=== PATIENT | male | born 1990 | race Two or more races ===

== ENCOUNTER 2024-02-06 13:15 | Emergency (ER) | payer OTHER, SELFPAY ==
[2024-02-06 13:18] VITALS: BP 165/96
[2024-02-06 14:52] VITALS: BP 132/80
--- NOTE | 2024-02-06 15:15 | ED.GENMED ---
History of Present Illness
General
Chief Complaint: Chest Pain
Source: patient
Exam Limitations: none
Time Seen by Provider: 02/06/24 15:07
Nursing documentation reviewed up to this point in time: agreed with
Travel History
Have you had any contact with someone who has COVID-19?: No
Do you have any symptoms of coronavirus? Fever > 100 degrees, chills, cough, shortness of breath, sore throat, loss of taste or smell, muscle aches, or headache?: No
History of Present Illness
History of Present Illness:
Patient is a 31 yr old male who presents to the ER for evaluation of left-sided chest pain that he has had for the past 3 weeks. He reports it has been constant for the past 2 weeks. He denies any associated shortness of breath. Denies any
injury but does tell me he feels that his pain is slightly improved when he lifts his left arm back. He has not taken anything for his pain he denies any rash fever or chills. He denies any coughing. He denies any prior history of cardiac
disease. No prior history of DVT PE. No family history cardiac disease.
Family history of hypertension. Patient is a smoker.
He presented to the ER today because he was afraid and wanted to be evaluated.
Review of Systems
Review of Systems
Allergies reviewed?: Yes
All Other Systems: ROS reviewed and negative except as documented in HPI and ROS
Constitutional: Reports no symptoms
Respiratory: Reports no symptoms
Cardiac: Reports chest pain; Denies diaphoresis, palpitations or syncope
ABD/GI: Reports no symptoms
: Reports no symptoms
Musculoskeletal: Reports no symptoms
Skin: Reports no symptoms
Neurological: Reports no symptoms
Hematologic/Lymphatic: Reports no symptoms
Psychiatric: Reports no symptoms
Phy Exam
General Physical Exam
General Presentation: no apparent distress
General age: appears stated age
General Skin: warm and dry
General Habitus: normal
General Mental: alert
General Hydration: appears well hydrated
Cardiovascular Exam
Cardiovascular Exam: regular rate/rhythm, no murmur and normal peripheral pulses
Pulmonary Exam
Pulmonary Exam: lungs clear and no respiratory distress
Neurological Exam
Neurological Exam: alert and oriented x3
Musculoskeletal Exam
Musculoskeletal Exam: full ROM
Skin Exam
Skin Exam: normal color and warm/dry
Psychiatric Exam
Psychiatric Exam: normal mood/affect
Scores
Heart Score for Chest Pain Patients
STEMI patient?: Not applicable
Course
Orders/Labs/Results
Orders:
Orders
02/06/24 13:16
EKG [Electrocardiogram (*1)] Urgent
Reason for Study: Chest Pain
EKG- Treatment ONCE
02/06/24 15:13
IV Insert/Care/Rem.- Treatment PRN
02/06/24 15:14
Cardiac Monitoring- Treatment ONCE
CR Chest - 2 Views Urgent
Comment:
Reason For Exam: cp
02/06/24 15:28
Complete Blood Count/With Diff Urgent
Comprehensive Metabolic Panel Urgent
Troponin I Urgent
02/06/24 15:53
D-Dimer Urgent
02/06/24 16:34
Ketorolac [Toradol] 15 mg IV NOW STA
Abnormal Lab Results
02/06/24
15:28
Absolute Monos (auto) 0.7 H 10^3/uL
(0.1-0.6)
Monocytes % 9.4 H %
(1.7-9.3)
Creatinine 0.6 L mg/dL
(0.7-1.3)
02/06/24 15:28
02/06/24 15:28
Vital Signs
Initial and Last Documented VS:
Initial Vital Signs
Temp Pulse Resp BP Pulse Ox
97.6 F 94 17 165/96 99
02/06/24 13:18 02/06/24 13:18 02/06/24 13:18 02/06/24 13:18 02/06/24 13:18
Last Documented Vital Signs
Temp Pulse Resp BP Pulse Ox
97.6 F 74 23 129/84 96
02/06/24 13:18 02/06/24 16:45 02/06/24 16:45 02/06/24 16:00 02/06/24 16:30
MDM/Problems Addressed
Differential Diagnosis Includes:
Not limited to musculoskeletal pain, costochondritis less likely ACS less likely PE
MDM/Problems Addressed:
Patient no acute distress has had constant pain for the past several weeks to left upper chest he does feel some relief when moving his arm back and outstretched. Symptoms are likely muscular. Patient no acute distress nontachycardic not shortness
of breath lungs clear not hypoxic with a normal D-dimer normal cardiac troponin and normal EKG. No recent fever chills he is afebrile here with a normal white count stable hemoglobin and normal chemistries. Will give dose of Toradol and plan for
discharge home with anti-inflammatory and close outpatient follow-up by family doctor.
*Radiology
Radiology exam reviewed: radiology read reviewed
*Pulse Oximetry
Patient hypoxic: no
*EKG
Interpreted by ED Provider?: Yes
Interpretation: normal
Heart Rate: 89
Rate: normal
Rhythm: sinus
Ischemia: no ischemia
*Critical Care Note
Total Time (30-74mins, 75-104mins- exclusive of procedures): Not Applicable
ED Attending Note
-
Portions of this chart may have been created with voice recognition software.� Occasional wrong word or��sound alike� substitutions may have occurred due to the inherent limitations of voice recognition software.
Discharge Plan
Departure
Patient Disposition: Home (Routine Discharge)
Date of Disposition: 02/06/24
Time of Disposition: 17:01
Patient with high blood pressure during this ER visit?: Yes
Condition: Fair
Covid-19: Not Applicable
Discharge Problem:
Chest pain
Instructions: Chest Pain That Is Not Caused by the Heart (DC), Chest Pain PCP Follow Up
Referrals:
Juany Salazar MD [Family Provider] -
Activity Restrictions/Additional Instructions:
As discussed your workup here in the ER was unremarkable. You may take ibuprofen 600 mg every 8 hours with food for pain. Follow-up close with family doctor the next several days return if any worsening of symptoms
Interventions
Interventions:
*Risk Screen - Suicide Last Done: 02/06/24 14:53
*General Assessment Last Done: 02/06/24 14:53
*Neglect/Abuse Screening Last Done: 02/06/24 14:53
*ED COVID-19 Vaccine History Last Done: 02/06/24 14:53
ED- Cardiac Assessment Last Done: 02/06/24 14:53
[2024-02-06 15:27] VITALS: BP 127/73
[2024-02-06 15:34] LABS: % Basophils 0.3 % (0-2); % Eosinophils 1.2 % (0-6); % Immature Granulocytes 0.3 % (0-0.5); % Lymphocytes 33.6 % (20.5-51.1); % Monocytes 9.4 % (1.7-9.3); % Neutrophils 55.2 % (42.2-75.2); Absolute Eosinophils 0.1 10^3/uL (0-0.7); Absolute Lymphocytes 2.3 10^3/uL (1.2-3.4); Absolute Monocytes 0.7 10^3/uL (0.1-0.6); Absolute Neutrophils 3.8 10^3/uL (1.4-6.5); Hematocrit 42.8 % (39.0-52.0); Hemoglobin 14.9 g/dL (13.0-18.0); Mean Corp Hgb Conc. 34.8 g/dL (33.0-37.0); Mean Corpuscular Hgb 29.4 pg (27.0-31.0); Mean Corpuscular Volume 84.4 fL (80.0-94.0); Mean Platelet Volume 9.4 fL (7.4-10.4); Nucleated Red Blood Cells % 0 % (-); Platelet Count 237 10^3/uL (130-400); Red Blood Cell Count 5.07 10^6/uL (4.70-6.10); Red Cell Dist. Width 12.3 % (11.5-14.5); White Blood Cell Count 6.9 10^3/uL (4.8-10.8)
[2024-02-06 15:53] VITALS: BP 124/80
[2024-02-06 16:00] VITALS: BP 129/84
[2024-02-06 16:02] LABS: Troponin I < 0.012 ng/ml
[2024-02-06 16:05] LABS: ALT (SGPT) 43 U/L (0-50); AST (SGOT) 33 U/L (17-59); Albumin 4.5 g/dl (3.5-5.0); Alkaline Phosphatase 94 U/L (38-126); Blood Urea Nitrogen 15 mg/dl (9-20); Calcium 10.1 mg/dl (8.4-10.2); Carbon Dioxide 22 mmol/L (22-30); Chloride 105 mmol/L (98-107); Glucose 97 mg/dl (70-99); Potassium 4.3 mmol/L (3.5-5.1); Sodium 138 mmol/L (135-145); Total Bilirubin 0.7 mg/dl (0.2-1.3); Total Protein 7.7 g/dl (6.3-8.2); eGFR > 60.00
[2024-02-06 16:13] LABS: D-Dimer < 0.27 ug/mlFEU (0.00-0.50)
[2024-02-06] MEDS: TORADOL 15 MG IV (16:46)
== END 2024-02-06 17:30 | disposition home or self-care (01) ==
LOC: EMR 13:15
PROVIDERS: Nurse Practitioner; EMERGENCY PHYSICIAN Emergency Medicine; FAMILY PHYSICIAN Family Medicine
DX: R07.89 Other chest pain (principal); R03.0 Elevated blood-pressure reading, without diagnosis of hypertension; F17.200 Nicotine dependence, unspecified, uncomplicated
CPT/HCPCS: 99284; 96374; 71046; 80053; 84484; 85025; 85379; 93005

== ENCOUNTER 2025-05-16 20:40 | Emergency (ER) | payer OTHER, SELFPAY ==
[2025-05-16 20:44] VITALS: BP 151/102
--- NOTE | 2025-05-16 22:16 | ED.GENMED ---
History of Present Illness
General
Chief Complaint: Skin Problem
Source: patient
Exam Limitations: none
Time Seen by Provider: 05/16/25 21:46
Nursing documentation reviewed up to this point in time: agreed with
History of Present Illness
History of Present Illness:
34-year-old male with no reported chronic medical issues presents with rash. Patient reports intensely pruritic rash on the arms bilaterally as well as the left chest wall. He says that the rash started last week and he has noticed a few new
lesions develop since then. Initially started mainly on the left forearm/wrist and then progressed to the right arm and ultimately the chest. Denies any lesions in the mouth, redness in the eyes. No fever. He says that prior to onset he was
doing yard work pulling weeds.
Review of Systems
Review of Systems
All Other Systems: ROS reviewed and negative except as documented in HPI and ROS
Constitutional: Denies fever
Skin: Reports itching and rash
Phy Exam
Physical Exam
Physical Exam:
General: Well appearing and non-toxic
HEENT: protecting airway
Neck: appears supple
CV: No evidence of cyanosis
Resp: No accessory muscle use
Abd: Non-distended
Extremities: No deformities
Neuro: Alert
Psych: Normal affect
Skin: Patient has raised erythematous vesicular rash ventral aspect of the left forearm as well as the right upper arm medial aspect and left pectoral region�lesions are roughly linear with some excoriations, no confluent erythema
Scores
Heart Failure Risk
Heart Failure Risk Score: Not Applicable
Heart Score for Chest Pain Patients
STEMI patient?: Not applicable
Withdrawal Assessment of Alcohol
Withdrawal Assessment Completed?: Not applicable
Course
Orders/Labs/Results
Orders:
Orders
05/16/25 22:15
Calamine [Calamine Lotion] See Dose Instructions TOPICAL ONCE ONE
Prednisone [Deltasone] 50 mg PO NOW STA
Vital Signs
Initial and Last Documented VS:
Initial Vital Signs
Temp Pulse Resp BP Pulse Ox
36.8 C 63 18 151/102 100
05/16/25 20:44 05/16/25 20:44 05/16/25 20:44 05/16/25 20:44 05/16/25 20:44
Last Documented Vital Signs
Temp Pulse Resp BP Pulse Ox
36.8 C 63 18 151/102 100
05/16/25 20:44 05/16/25 20:44 05/16/25 20:44 05/16/25 20:44 05/16/25 20:44
MDM/Problems Addressed
Differential Diagnosis Includes:
Poison peggy dermatitis, scabies, eczema
MDM/Problems Addressed:
34-year-old male presents with pruritic rash as described on the arms and chest wall started a week ago after pulling weeds in the yard. Vitals and exam as above�no mucous membrane involvement, no fever. Presentation seems most consistent with
poison peggy dermatitis. Treat with calamine and prednisone. Stable for discharge. Advised to clean close and shoes. He was noted to be hypertensive here we spoke about this�we talked about dietary adjustments and exercise, follow-up with PCP.
All questions answered.
Acute Exacerbation and/or Progression of Chronic Illness:
Acutely hypertensive without signs or symptoms of hypertensive crisis�no indication for emergent antihypertensive treatment
Acute Exacerbation and/or Progression of Chronic Illness: HTN
*Pulse Oximetry
Patient hypoxic: no
*Critical Care Note
Total Time (30-74mins, 75-104mins- exclusive of procedures): Not Applicable
Data Reviewed
Source: patient
ED Attending Note
-
Portions of this chart may have been created with voice recognition software.� Occasional wrong word or��sound alike� substitutions may have occurred due to the inherent limitations of voice recognition software.
Discharge Plan
Departure
Patient Disposition: Home (Routine Discharge)
Date of Disposition: 05/16/25
Time of Disposition: 22:13
Patient with high blood pressure during this ER visit?: Yes
Discharge Problem:
Poison peggy dermatitis
Instructions: Poison [place], Poison [place], Poison [place] [facility]
Prescriptions:
New
Calagesic 1-8 % lotion
1 applic topical QID PRN (Reason: itching) Qty: 177 0RF
prednisone 10 mg Tablet
See Rx Instructions .ROUTE .COMPLEX Qty: 30 0RF
Rx Instructions:
Take By Mouth:
40 mg daily x3 days, 30 mg daily x3 days,
20 mg daily x3 days, 10 mg daily x3 days.
Referrals:
NONE,* [Family Provider, Internal Medicine]
Activity Restrictions/Additional Instructions:
Make sure you clean your clothes and shoes as we discussed. Please return with worsening symptoms.
Thank you for visiting the Emergency Department at [facility].
1. Please schedule a follow up appointment as directed. Call first thing tomorrow morning to make an appointment.
2. If indicated, please take your medications as instructed and indicated on discharge paperwork.
3. If any of your symptoms do not improve, or persist, or become more severe within 6-12 hours, please return to the emergency department for further care.
4. Please return to the emergency department if you develop a headache, neck pain/stiffness, fever greater than 100.4F, chest pain, shortness of breath, persistent nausea, vomiting, slurred speech, difficulty walking, numbness/tingling, weakness,
signs of infection or any other symptoms that are worrisome to you.
Please call [phone] if you have any questions.
Interventions
Interventions:
*Risk Screen - Suicide Last Done: 05/16/25 20:45
*General Assessment Last Done: 05/16/25 20:45
*Neglect/Abuse Screening Last Done: 05/16/25 20:45
*ED- Fall Risk Assessment Last Done: 05/16/25 20:45
*ED COVID-19 Vaccine History Last Done: 05/16/25 20:45
Discharge Date and Time
Print Language: VIETNAMESE
[2025-05-16] MEDS: DELTASONE 50 MG PO (22:31)
[2025-05-16] MEDS: CALAMINE LOTION 180 ML TOPICAL (22:32)
[2025-05-16 22:35] VITALS: BP 131/83
== END 2025-05-16 22:39 | disposition home or self-care (01) ==
LOC: EMR 20:40
PROVIDERS: EMERGENCY PHYSICIAN Emergency Medicine
DX: L23.7 Allergic contact dermatitis due to plants, except food (principal); I10 Essential (primary) hypertension
CPT/HCPCS: 99283

== ENCOUNTER 2025-08-28 12:38 | Emergency (ER) | payer OTHER, SELFPAY ==
[2025-08-28 12:39] VITALS: BP 145/97
--- NOTE | 2025-08-28 14:07 | ED.GENMED ---
History of Present Illness
General
Chief Complaint: Ear Problem
Source: patient and spouse
Time Seen by Provider: 08/28/25 13:59
History of Present Illness
History of Present Illness:
35 yr old male with c/o R ear pain for 3 weeks. No trauma/f/c/vertigodizziness/uri sxs. No swelling, dischxrage, st/rhinorrhea/cough. No neck pain. No cp/sob. Pt does note that he will sometimes have tinglign of raquel mb/index and middle finger as
well. checks his bp reguarly and notes it is sbp 140's, and noted to 160's most recently. He rarely sees a doctor.
Past History
Past History
ED Past Medical History: None
ED Past Surgical History: None
Social History
Tobacco: Smoker
Alcohol: Occasional
Drug: None
Personal:
Living: with family
Phy Exam
Physical Exam
Physical Exam:
GENERAL: Alert , in no apparent distress
EYE: pupils equal and reactive, EOMI, no nystagmus, no
NECK: Supple, no significant adenopathy.
ENT: o/p clr, mmm, airway patent, no trismus, no drool, TMs clear bilaterally, no auricle abnormalities, no mastoid tenderness swelling or redness.
CARDIAC: Regular rate and rhythm .
LUNGS: Clear breath sounds bilaterally, no acute respiratory distress, no wheezes/rales/rhonchi
ABDOMEN: Soft, without focal tenderness, no r/g, no cvat
NEUROLOGICAL: Alert and oriented, no focal neuro deficits, motor 5 out of 5, sensory intact, [id number] normal, gait normal
SKIN: Warm and dry, skin intact.
MUSCULOSKELETAL: No edema, well perfused.
PSYCH: Normal and appropriate interaction.
Course
Vital Signs
Initial and Last Documented VS:
Initial Vital Signs
Temp Pulse Resp BP Pulse Ox
98.1 F 70 18 145/97 98
09/29/25 12:39 08/28/25 12:39 08/28/25 12:39 08/28/25 12:39 08/28/25 12:39
Last Documented Vital Signs
Temp Pulse Resp BP Pulse Ox
98.1 F 70 18 145/97 98
08/28/25 12:39 08/28/25 12:39 08/28/25 12:39 08/28/25 12:39 08/28/25 14:10
*Pulse Oximetry
SaO2: 98
Oxygen Mode of Delivery: Room air
Patient hypoxic: no
*Critical Care Note
Total Time (30-74mins, 75-104mins- exclusive of procedures): Not Applicable
Update Note
Update Note:
Patient presents to the Emergency Department with __ear pain with intermittent tingling fingers
Number and Complexity of Problems Addressed at the Encounter
� Chronic conditions affecting care:
� Acute Exacerbation and/or Progression of Chronic Illness:
� Differential Diagnosis includes: But not limited to otitis media, otitis externa, hemotympanum, trauma, mastoiditis, atypical headache, dental referred pain, radiculopathy, etc. etc.
Amount and/or Complexity of Data to be Reviewed and Analyzed
� I performed an independent evaluation of and my interpretation is:
EKG:
CT:
Xrays:
Laboratory Studies:
Other:
� Review of other/old records reveals:
� Clinical information was obtained by an independent historian: who is bedside
� Prescriptions/Medications Considered but not given:
� Further testing considered but not performed:
Risk of Complications and/or Morbidity or Mortality of Patient Management
� Social determinants of health affecting care:
� Discussion with other providers (PCP, Hospitalists, Consultants, etc):
� Escalation of care including admission/observation vs risk of discharge considered: Patient's exam is completely normal including thorough neurological exam, ENT exam, etc. Suspect tingling that he is having likely a
radiculopathy perhaps related to radial nerve impingement/spinal stenosis. Patient's blood pressure noted to be elevated here, highly recommend patient see his primary care doctor this week for management and further evaluation of this. Patient
does not demonstrate signs or symptoms to suggest endorgan injury, TIA/CVA, dissection, etc. etc. Of note, he does state that his symptoms are relieved with Tylenol.
ED Attending Note
-
Portions of this chart may have been created with voice recognition software.� Occasional wrong word or��sound alike� substitutions may have occurred due to the inherent limitations of voice recognition software.
Discharge Plan
Departure
Patient Disposition: Home (Routine Discharge)
Date of Disposition: 08/28/25
Time of Disposition: 14:07
Patient with high blood pressure during this ER visit?: Yes
Condition: Good
Discharge Problem:
Hypertension
Instructions: BLOOD PRESSURE
Prescriptions:
No Action
Calagesic 1-8 % lotion
1 applic topical QID PRN (Reason: itching) Qty: 177 0RF
prednisone 10 mg Tablet
See Rx Instructions .ROUTE .COMPLEX Qty: 30 0RF
Rx Instructions:
Take By Mouth:
40 mg daily x3 days, 30 mg daily x3 days,
20 mg daily x3 days, 10 mg daily x3 days.
Referrals:
Glenn Rdz MD [Family Provider, Internal Medicine] - Tomorrow
Activity Restrictions/Additional Instructions:
YOUR EAR EXAM IS NORMAL, HOWEVER YOUR BLOOD PRESSURE IS ELEVATED. PLEASE SEE YOUR DOCTOR SOON POSSIBLE FOR EVALUATION OF THIS. IF YOU DEVELOP FEVER, DIZZINESS, WEAKNESS, CHANGE IN VISION/SPEECH, SWELLING, INCREASING/NEW PAIN, OR OTHER
WORRISOME SIGNS, GO TO THE ER IMMEDIATELY!
Interventions
Interventions:
*Risk Screen - Suicide Last Done: 08/28/25 12:39
*General Assessment Last Done: 08/28/25 12:39
*Nursing Disposition Last Done: 08/28/25 14:12
Discharge Date and Time
Print Language: GERMAN
== END 2025-08-28 14:14 | disposition home or self-care (01) ==
LOC: EMR 12:38
PROVIDERS: EMERGENCY PHYSICIAN Emergency Medicine; FAMILY PHYSICIAN Internal Medicine
DX: I10 Essential (primary) hypertension (principal); F17.200 Nicotine dependence, unspecified, uncomplicated
CPT/HCPCS: 99282

== ENCOUNTER 2025-10-13 20:43 | Emergency (ER) | payer OTHER, SELFPAY ==
[2025-10-13 20:50] VITALS: BP 160/100
[2025-10-13 21:12] LABS: Urine Character Clear (Clear)
[2025-10-13 21:16] LABS: Hematocrit 45.0 % (39.0-52.0); Hemoglobin 15.0 g/dL (13.0-18.0); Mean Corp Hgb Conc. 33.3 g/dL (33.0-37.0); Mean Corpuscular Volume 87.2 fL (80.0-94.0); Nucleated Red Blood Cells % 0 % (-); Platelet Count 229 10^3/uL (130-400); Red Cell Dist. Width 11.6 % (11.5-14.5)
[2025-10-13 21:35] LABS: Urine Squamous Cell 0-2 /LPF (Few)
[2025-10-13 21:36] LABS: Urine Red Blood Cell 0-2 /HPF (0-2); Urine White Cell 0-2 /HPF (0-5)
[2025-10-13 21:37] LABS: ALT (SGPT) 56 U/L (0-50); AST (SGOT) 32 U/L (17-59); Albumin 5.0 g/dl (3.5-5.0); Alkaline Phosphatase 98 U/L (38-126); Blood Urea Nitrogen 12 mg/dl (9-20); Calcium 9.9 mg/dl (8.4-10.2); Carbon Dioxide 28 mmol/L (22-30); Chloride 105 mmol/L (98-107); Glucose 92 mg/dl (70-99); Potassium 3.8 mmol/L (3.5-5.1); Sodium 138 mmol/L (135-145); Total Protein 8.3 g/dl (6.3-8.2); eGFR > 60.00
[2025-10-13 21:49] LABS: Troponin I 0.016 ng/ml
--- NOTE | 2025-10-13 22:21 | ED.GENMED ---
History of Present Illness
General
Chief Complaint: Chest Pain
Source: patient
Exam Limitations: none
Time Seen by Provider: 10/13/25 22:12
History of Present Illness
History of Present Illness:
See MDM
Past History
Past History
ED Past Medical History: HTN
ED Past Surgical History: None
Social History
Tobacco: Smoker
Alcohol: Occasional
Drug: None
Personal:
Living: with family
Phy Exam
Physical Exam
Physical Exam:
See MDM
Scores
Heart Score for Chest Pain Patients
STEMI patient?: No
History: Slightly or Non-Suspicious
ECG: Normal
Age: </= 45 years
Risk Factors: 1 or 2 Risk Factors
Troponin: </= Normal Limit
Heart Score for Chest Pain Patients: 1
Heart Score Risk: 2.5% MACE over next 6 weeks
Course
Orders/Labs/Results
Orders:
Orders
10/13/25 20:55
Electrocardiogram (*1) Urgent
Reason for Study: Other
Other Reason for Exam: Respiratory Distress
EKG- Treatment ONCE
CR Chest - 2 Views Urgent
Comment:
Reason For Exam: respiratory distress
O2 Therapy [RESP] Urgent
Titrate/Wean O2 to maintain O2 sat greater than (%): 93
Special Instructions: TO MAINTAIN CONTINUOUS O2 SATS >/= 93%
Pulse Ox/cont/shift [RESP] Urgent
Quantity: 1
Special Instructions: continuous pulse ox
10/13/25 21:05
Complete Blood Count/With Diff Urgent
Urinalysis Reflex To Culture Urgent
Date Specimen was Collected: 10/13/25
Time Specimen was Collected: 20:56
Urine Microscopic Reflex Cult Urgent
10/13/25 21:06
Comprehensive Metabolic Panel Urgent
NT-proBNP Urgent
Troponin I Urgent
10/13/25 22:18
CT Abd/pel Without Iv Or Oral Urgent
Comment:
Reason For Exam: flank pain
10/13/25 22:45
Hydrochlorothiazide [Oretic] 12.5 mg PO NOW ONE
Abnormal Lab Results
10/13/25 10/13/25
21:05 21:06
ALT 56 H U/L
(0-50)
Total Protein 8.3 H g/dl
(6.3-8.2)
Urine Bacteria (Reflex) Few A
(Negative)
Urine Albumin (Reflex) 1+ A
(Neg - Trace)
10/13/25 21:05
10/13/25 21:06
Vital Signs
Initial and Last Documented VS:
Initial Vital Signs
Temp Pulse Resp BP Pulse Ox
97.8 F 74 20 160/100 99
10/13/25 20:50 10/13/25 20:50 10/13/25 20:50 10/13/25 20:50 10/13/25 20:50
Last Documented Vital Signs
Temp Pulse Resp BP Pulse Ox
97.8 F 58 18 135/95 95
10/13/25 20:50 10/13/25 23:26 10/13/25 23:26 10/13/25 23:00 10/13/25 23:30
MDM/Problems Addressed
Differential Diagnosis Includes:
Note:
CHIEF COMPLAINT(S)
High blood pressure and back pain.
HISTORY OF PRESENT ILLNESS
The patient is a 35-year-old male with a history of hypertension. He was recently started on losartan 50 mg once daily. He reports taking two doses per day, yesterday and today, due to elevated blood pressure readings at home ranging from 165/70 to
178/70 mmHg. The patient mentions experiencing flank pain, which appears to reflect as back pain rather than kidney issues. He denies any urinary symptoms and reports recent normal lab work and an EKG, which was evaluated as fine. Patient denies
any exertional symptoms. Complains of some chest pressure that has been ongoing for the past day or so.
PAST MEDICAL AND SURGICAL HISTORY
The patient has a history of hypertension treated with losartan.
CHRONIC MEDICAL CONDITIONS SIGNIFICANTLY AFFECTING CARE
Chronic conditions affecting care: Hypertension.
SOCIAL DETERMINANTS OF HEALTH
The patient mentions a family history of hypertension ('Everyone does').
PHYSICAL EXAM
General: Alert, no acute distress.
Skin: Warm, dry.
Head: Normocephalic, atraumatic
Neck: Appears supple, trachea midline.
Eyes, Ears, Nose, Mouth, and Throat: Moist mucous membranes
Cardiovascular: No signs of cyanosis. Regular rate and rhythm
Respiratory: Respirations are non-labored. Lungs clear
Abdomen: Non-distended
Back: Mild paralumbar muscle tenderness.
Musculoskeletal: No deformities
Neurological: No focal neurological deficit observed.
Psychiatric: Cooperative, appropriate mood and affect.
PLAN
Order a CT scan to rule out kidney stones and evaluate the possibility of increasing losartan dosage or adding an additional antihypertensive agent until further assessment with the primary care physician.
Will add dose of hydrochlorothiazide in addition to his losartan
DIFFERENTIAL DIAGNOSIS
The Differential Diagnosis includes, in no particular order and is not limited to:
- Hypertension
- Kidney stone
- Musculoskeletal back pain
- Renal artery stenosis
- Pyelonephritis
- Pheochromocytoma
- Primary aldosteronism
- Cushings syndrome
- Coarctation of the aorta
- Anxiety-related hypertension
SUMMARY OF ENCOUNTER
The patient presented with elevated blood pressure and associated flank pain. Normal clinical workup, including EKG and lab results, suggests benign findings thus far. Management plans include re-evaluating hypertension medication and performing a
CT scan to rule out possible kidney stones.
DISPOSITION
Discharge.
ASSESSMENT
Hypertension with possible musculoskeletal component for back pain.
INDEPENDENT REVIEW OF LABS AND INTERPRETATION OF TESTS
My independent review of the patients prior lab work indicates normal results without signs of organ injury.
MEDICATION RECONCILIATION
Possibility to increase losartan dosage temporarily or add another antihypertensive medication as discussed.
MEDICAL DECISION MAKING
- Complexity of Data Reviewed: Chronic conditions affecting care: Hypertension.
- Data:
Category 1:
- Review and interpretation of EKG: Normal
- Blood test analysis: Unremarkable
- Independent historian input: Family history of hypertension.
Category 2:
- Discussion of management with the patient about increasing or adjusting hypertension medications.
DIAGNOSIS
Hypertension (ICD-10: I10)
EKG
My independent EKG interpretation is:
- Rhythm: Sinus rhythm
- Heart Rate: 64 beats per minute
- Beach: Normal
- ST Segment: No ST elevation
SUMMARY OF ENCOUNTER
The patient presented with complaints of chest pressure and back pain accompanied by elevated blood pressure. A comprehensive evaluation was conducted with no evidence found of end-organ damage. The chest X-ray was clear, and a CT scan ruled out
kidney stones. Discussion involved increasing his current antihypertensive medication, losartan, given suboptimal blood pressure control.
DISPOSITION
Discharge.
ASSESSMENT
Elevated blood pressure without acute end-organ damage.
PLAN
Increase losartan dosage by adding hydrochlorothiazide on an as-needed basis until further evaluation with the primary care physician can establish a more effective blood pressure management regimen.
INDEPENDENT REVIEW OF LABS AND INTERPRETATION OF TESTS
- My independent review verifies a clear chest X-ray.
- My independent interpretation of the CT scan confirms the absence of kidney stones.
MEDICATION RECONCILIATION
- Initiation of hydrochlorothiazide on an as-needed basis for blood pressure management.
MEDICAL DECISION MAKING
- Complexity of Data Reviewed: Chronic conditions affecting care include hypertension.
- Data:
- Category 1: Interpretation of clear chest X-ray and CT scan confirming the absence of kidney stones.
- Risk:
- Consideration of Admission/Observation: Escalation of care, including potential admission, was considered due to the patients presentation and risk profile. However, assessment revealed no acute life-threatening conditions, and thus, outpatient
management is deemed appropriate with close follow-up.
DIAGNOSIS
Hypertension (ICD-10: I10)
*Pulse Oximetry
SaO2: 99
Oxygen Mode of Delivery: Room air
Patient hypoxic: no
*Critical Care Note
Total Time (30-74mins, 75-104mins- exclusive of procedures): Not Applicable
ED Attending Note
-
Portions of this chart may have been created with voice recognition software.� Occasional wrong word or��sound alike� substitutions may have occurred due to the inherent limitations of voice recognition software.
Discharge Plan
Departure
Patient Disposition: Home (Routine Discharge)
Date of Disposition: 10/13/25
Time of Disposition: 23:48
Patient with high blood pressure during this ER visit?: Yes
Discharge Problem:
Pressure in chest
Instructions: Chest Pain PCP Follow Up, BLOOD PRESSURE
Prescriptions:
New
hydrochlorothiazide 12.5 mg tablet
12.5 mg PO DAILY Qty: 14 0RF
No Action
Calagesic 1-8 % lotion
1 applic topical QID PRN (Reason: itching) Qty: 177 0RF
prednisone 10 mg Tablet
See Rx Instructions .ROUTE .COMPLEX Qty: 30 0RF
Rx Instructions:
Take By Mouth:
40 mg daily x3 days, 30 mg daily x3 days,
20 mg daily x3 days, 10 mg daily x3 days.
Referrals:
Glenn Rdz MD [Family Provider, Internal Medicine]
Activity Restrictions/Additional Instructions:
Please return for any worsening symptoms.
You may return at any time if you have further concerns.
Please follow up with your doctor at the first available appointment, preferably this week.
Please discuss your elevated blood pressure. For the time being, please increase your losartan to 100 mg a day. If your blood pressure remains greater than 160/90 in the middle of the day, you can take a dose of the hydrochlorothiazide.
Thank you for choosing [facility].
Interventions
Interventions:
*Risk Screen - Suicide Last Done: 10/13/25 20:50
*General Assessment Last Done: 10/13/25 20:50
*Neglect/Abuse Screening Last Done: 10/13/25 20:50
*ED- Fall Risk Assessment Last Done: 10/13/25 20:50
*ED COVID-19 Vaccine History Last Done: 10/13/25 20:50
*ED Influenza Vaccine History Last Done: 10/13/25 20:50
QS-Cnyrhl-Sstwdhappv Assessment Last Done: 10/13/25 23:05
ED- Cardiac Assessment Last Done: 10/13/25 23:05
ED-Male Genitourinary Assessment Last Done: 10/13/25 23:05
Discharge Date and Time
Print Language: SERBIAN
[2025-10-13 22:47] VITALS: BMI 32.2
[2025-10-13] MEDS: ORETIC 12.5 MG PO (22:47)
[2025-10-13 22:49] VITALS: BP 124/77
[2025-10-13 23:00] VITALS: BP 135/95
[2025-10-13 23:48] VITALS: BP 127/78
== END 2025-10-14 00:07 | disposition home or self-care (01) ==
LOC: EMR 20:43
PROVIDERS: Emergency Medicine; EMERGENCY PHYSICIAN Student in an Organized Health Care Education/Training Program; FAMILY PHYSICIAN Internal Medicine
DX: R07.89 Other chest pain (principal); I10 Essential (primary) hypertension; F17.200 Nicotine dependence, unspecified, uncomplicated; Z82.49 Family history of ischemic heart disease and other diseases of the circulatory system
CPT/HCPCS: 99284; 71046; 74176; 80053; 81003; 81015; 83880; 84484; 85025; 93005